=== PATIENT | female | born 1940 | race Caucasian/White ===

== ENCOUNTER 2016-12-06 09:36 | Outpatient (CLI) | payer MEDICARE, BC ==
--- NOTE | 2016-12-06 14:28 | CT ---
CT THORAX WITHOUT IV CONTRAST: Date: 12-06-16 History: Bronchiectasis. CAMILLE. Shortness of breath. Comparison: 09-22-16 FINDINGS: Again noted are numerous pulmonary nodules seen within the lung bilaterally. Largest noncalcified pu lmonary nodule in the right upper lobe measures 10 mm which is stable in size compared to the prior exam. There is an irregular nodular density at the right lung base on the prior study, previously me asuring 9 mm x 8 mm which is now smaller in size and has a more tubular configuration and appears to represent a vessel on this examination. Nevertheless, the nodular portion is much smaller. Addition al nodular densities at the right lung base are stable in size. No new pulmonary nodule or mass is i dentified. A few scattered calcified granulomata are identified with splenic and hepatic granulomata also again present. No pleural effusion is seen. Slight ground glass density at each lung base are again seen and unchan ged. Vascular calcifications are again seen in the thoracic aorta. No other interval change. IMPRESSION: 1. Previously described triangular nodular density at the right base has improved and is only repres ented by linear density on today's exam. 2. Stable scattered nodular densities within the lungs bilaterally as well as stable mild bibasilar ground glass densities. These findings are likely attributable to patient's history of CAMILLE. 3. Evidence of prior granulomatous disease. POS: [facility]
== END 2016-12-06 09:37 | disposition home or self-care (01) ==
LOC: CT 09:36
PROVIDERS: ATTEND Internal Medicine Critical Care Medicine
DX: D71 Functional disorders of polymorphonuclear neutrophils (principal); J47.9 Bronchiectasis, uncomplicated; R91.8 Other nonspecific abnormal finding of lung field
CPT/HCPCS: 71250

== ENCOUNTER 2017-01-25 08:00 | Outpatient (CLI) | payer MEDICARE, BC | END 2017-01-25 08:01 | disposition home or self-care (01) | LOC: BICMAMMO 08:00 | PROVIDERS: ATTEND Internal Medicine | DX: Z53.9 Procedure and treatment not carried out, unspecified reason (principal) ==

== ENCOUNTER 2017-02-09 08:07 | Outpatient (CLI) | payer MEDICARE, BC | END 2017-02-09 08:08 | disposition home or self-care (01) | LOC: BICMAMMO 08:07 | PROVIDERS: ATTEND Internal Medicine | DX: Z53.9 Procedure and treatment not carried out, unspecified reason (principal) ==

== ENCOUNTER 2017-03-22 14:45 | Outpatient (CLI) | payer MEDICARE, BC | END 2017-03-22 14:46 | disposition home or self-care (01) | LOC: BICMAMMO 14:45 | PROVIDERS: ATTEND Internal Medicine | DX: Z12.31 Encounter for screening mammogram for malignant neoplasm of breast (principal); Z13.820 Encounter for screening for osteoporosis; M85.852 Other specified disorders of bone density and structure, left thigh; Z80.3 Family history of malignant neoplasm of breast | CPT/HCPCS: 77063; 77067; 77080 ==

== ENCOUNTER 2017-05-25 19:18 | Emergency (ER) | payer MEDICARE, BC ==
[2017-05-25] MEDS ORDERED: Lorazepam 1 MG TAB ONE (20:03)
[2017-05-25 20:21] LABS: Anion Gap 13 mmol/L (10-20); BUN (Urea Nitrogen) 19 mg/dL (9.8-20.1); Calc. Creatinine Clearance 0 mL/min (70-130); Calcium 9.9 mg/dL (7.8-10.44); Carbon Dioxide 32 mmol/L (23-31); Chloride 99 mmol/L (98-107); Estimated GFR-MDRD 72; Glucose 121 mg/dL (83-110); Potassium 4.7 mmol/L (3.5-5.1); Sodium 139 mmol/L (136-145)
[2017-05-25 20:22] LABS: #Basophils 0.1 thou/uL (0.0-0.2); #Eosinphils 0.1 thou/uL (0.0-0.7); #Monocytes 0.4 thou/uL (0.11-0.59); #Neutrophils 3.9 thou/uL (1.40-6.50); %Basophils 1.2 % (0.0-1.0); %Lymphocytes 18.1 % (21.0-51.0); %Monocytes 7.4 % (0.0-10.0); %Neutrophils 71.4 % (42.0-75.0); Hemoglobin 13.9 g/dL (12.0-16.0); Mean Corpuscular HGB CONC 34.3 g/dL (32.0-36.0); Mean Corpuscular Hemoglobin 31.1 pg (27.0-31.0); Mean Corpuscular Volume 90.7 fl (81.0-99.0); Mean Platelet Volume 8.4 fL (7.4-10.4); Platelet Count 208 thou/uL (130-400); RBC Distribution Width 10.8 % (11.5-14.5); Red Blood Cell (RBC) Count 4.48 mill/uL (4.20-5.40); White Blood Cell (WBC) Count 5.4 thou/uL (4.8-10.8)
[2017-05-25 20:25] LABS: CKMB 1.5 ng/mL (0-6.6); Troponin I Less than 0.010 ng/mL (< 0.028)
--- NOTE | 2017-05-25 21:18 | RAD ---
CHEST PA AND LATERAL TWO VIEWS: 05/25/17 HISTORY: 76-year-old female with history of dyspnea and anxiety. COMPARISON: Heart size is normal. Calcified granuloma in the left chest. There are several circumscribed nodules in the right lung including the upper and lower lung zones which appear stable when compared to a anh or CT scan of 12/06/16. No confluent pneumonia, overt edema or pleural effusion. IMPRESSION: Stable multiple nodular densities in the right chest. Old granulomatous disease in the left chest. No evidence for pneumonia, edema, or other acute process. POS: [facility]
== END 2017-05-25 20:52 | disposition home or self-care (01) ==
LOC: SCSER 19:18
DX: F41.9 Anxiety disorder, unspecified (principal); J44.9 Chronic obstructive pulmonary disease, unspecified; Z79.899 Other long term (current) drug therapy
CPT/HCPCS: 71046; 80048; 82553; 84484; 85025; 85379; 93005; J7620

== ENCOUNTER 2018-01-17 10:10 | Outpatient (CLI) | payer MEDICARE, BC ==
--- NOTE | 2018-01-17 13:29 | RAD ---
CHEST TWO VIEWS: History: Dyspnea. Comparison: 01-24-18 FINDINGS: Similar appearance to both lung nodules right upper lobe. Small right upper lobe bronchiolectasis. Th ere is also right lower and left lower lobe pulmonary nodules. No pneumothorax. No large effusion. IMPRESSION: Similar appearance of the numerous pulmonary nodules. POS: [facility]
== END 2018-01-17 10:11 | disposition home or self-care (01) ==
LOC: RAD 10:10
PROVIDERS: ATTEND Internal Medicine Critical Care Medicine
DX: R06.00 Dyspnea, unspecified (principal); R91.8 Other nonspecific abnormal finding of lung field
CPT/HCPCS: 71046

== ENCOUNTER 2018-02-03 15:06 | Outpatient (CLI) | payer MEDICARE, BC ==
--- NOTE | 2018-02-03 17:13 | MRI ---
MRI BRAIN WITH AND WITHOUT IV CONTRAST: Date: 02/03/18 HISTORY: Disorientation, memory issues, COMPARISON: 01/22/16. FINDINGS: The focal areas of gliosis in the right posterior frontal region is stable. Changes of chronic small vessel ischemic disease in the periventricular white matter are again seen. No evidence of infarct, h emorrhage, mass, midline shift, or abnormal extra-axial fluid collections are noted. No abnormal post contrast enhancement is seen. The ventricular size is appropriate and the basilar cisterns are patent . The visualized paranasal sinuses and mastoid air cells are well aerated. IMPRESSION: Stable exam. No evidence of acute intracranial process or mass. POS: [facility]
== END 2018-02-03 15:07 | disposition home or self-care (01) ==
LOC: BICMRI 15:06
PROVIDERS: ATTEND Internal Medicine
DX: R41.0 Disorientation, unspecified (principal); A31.0 Pulmonary mycobacterial infection
CPT/HCPCS: 70553

== ENCOUNTER 2018-03-16 14:12 | Outpatient (CLI) | payer MEDICARE, BC ==
--- NOTE | 2018-03-16 14:35 | RAD ---
PA AND LATERAL CHEST: History: Cough. Comparison: 05-25-17 FINDINGS: Heart size is within normal limits. Lungs are clear of infiltrates. Nodular densities in both lung fi elds are stable. No significant bony findings. IMPRESSION: Stable pulmonary nodules. No active intrathoracic disease. POS: [facility]
== END 2018-03-16 14:13 | disposition home or self-care (01) ==
LOC: BICRAD 14:12
PROVIDERS: ATTEND Internal Medicine
DX: R05 Cough (principal); R07.81 Pleurodynia; J91.8 Pleural effusion in other conditions classified elsewhere
CPT/HCPCS: 71046

== ENCOUNTER 2018-03-30 18:28 | Emergency (ER) | payer MEDICARE, BC ==
[2018-03-30] MEDS ORDERED: Aspirin Chewable 81 MG TAB ONE (19:07)
[2018-03-30 19:14] LABS: #Basophils 0.1 thou/uL (0.0-0.2); #Eosinphils 0.1 thou/uL (0.0-0.7); #Lymphocytes 1.2 thou/uL (1.20-3.40); #Monocytes 0.5 thou/uL (0.11-0.59); #Neutrophils 3.9 thou/uL (1.40-6.50); %Basophils 0.9 % (0.0-1.0); %Eosinophils 2.2 % (0.0-10.0); %Lymphocytes 20.9 % (21.0-51.0); %Monocytes 9.4 % (0.0-10.0); %Neutrophils 66.6 % (42.0-75.0); Mean Corpuscular HGB CONC 32.9 g/dL (32.0-36.0); Mean Corpuscular Hemoglobin 30.8 pg (27.0-31.0); Mean Corpuscular Volume 93.5 fL (78.0-98.0); Mean Platelet Volume 8.4 fL (7.4-10.4); Platelet Count 247 thou/uL (130-400); RBC Distribution Width 11.2 % (11.5-14.5); Red Blood Cell (RBC) Count 4.56 mill/uL (4.20-5.40); White Blood Cell (WBC) Count 5.8 thou/uL (4.8-10.8)
[2018-03-30 19:29] LABS: ALT (SGPT) 20 U/L (8-55); AST (SGOT) 24 U/L (5-34); Albumin 4.3 g/dL (3.4-4.8); Alkaline Phosphatase 48 U/L (40-150); Anion Gap 13 mmol/L (10-20); BUN (Urea Nitrogen) 17 mg/dL (9.8-20.1); Bilirubin, Total 0.2 mg/dL (0.2-1.2); Calc. Creatinine Clearance 0 mL/min (70-130); Carbon Dioxide 33 mmol/L (23-31); Chloride 100 mmol/L (98-107); Estimated GFR-MDRD 80; Globulin 2.5 g/dL (2.4-3.5); Glucose 81 mg/dL (83-110); Lipase 29 U/L (8-78); Potassium 4.3 mmol/L (3.5-5.1); Protein, Total 6.8 g/dL (6.0-8.3); Sodium 142 mmol/L (136-145)
--- NOTE | 2018-03-30 19:36 | RAD ---
TWO VIEWS CHEST: 03/30/18 HISTORY: Cough, shortness of breath. PA and lateral views of the chest is obtained on 03/30/18. Comparison made to previous exam from 03/16/18. Two views chest demonstrate well circumscribed densiti es in the right upper lobe, right lower lobe, and left hilar regions. These are stable and unchanged since the previous exam. Mild pulmonary vascular congestion seen. Some areas of scarring seen in the right lung base. No significant interval changes noted. No evidence of pneumothorax seen. IMPRESSION: Well circumscribed nodular densities in the right lung and left hilar regions, unchanged since the pr evious exam. POS: [facility]
== END 2018-03-30 20:05 | disposition home or self-care (01) ==
LOC: SCSER 18:28
DX: R06.02 Shortness of breath (principal); J44.9 Chronic obstructive pulmonary disease, unspecified; E78.00 Pure hypercholesterolemia, unspecified; F41.9 Anxiety disorder, unspecified
CPT/HCPCS: 71046; 80053; 83690; 83880; 84484; 85025; 85379; 93005; J7620

== ENCOUNTER 2018-04-12 10:42 | Outpatient (CLI) | payer MEDICARE, BC | END 2018-04-12 10:43 | disposition home or self-care (01) | LOC: BICMAMMO 10:42 | PROVIDERS: ATTEND Internal Medicine | DX: Z12.31 Encounter for screening mammogram for malignant neoplasm of breast (principal); R92.1 Mammographic calcification found on diagnostic imaging of breast; Z80.3 Family history of malignant neoplasm of breast | CPT/HCPCS: 77063; 77067 ==

== ENCOUNTER 2018-07-10 08:30 | Outpatient (CLI) | payer MEDICARE, BC ==
[2018-07-10] MEDS ORDERED: Iopamidol 370 76% 100 ML VIAL ONE (09:00)
--- NOTE | 2018-07-10 10:01 | CT ---
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 COMPARISON: 12/06/2016. FINDINGS: Lungs remain hyperinflated. Nodular scarring at the right apex is similar in appearance to the previous study. The 1.0 cm noncalcified nodule within the central aspect of the right upper lobe is stable. Additional subcentimeter right parenchymal nodules and the nodular scarring at the ri ght lateral lung base are stable compared to 12/06/2016. Calcified granuloma the left lower lobe is stable. No new masses. No pleural fluid or pneumothorax. No mediastinal adenopathy. Minimal calcification within the arteria l structures. IMPRESSION: Right lung nodules, parenchymal scarring, and other findings are stable. No new chest abn ormalities.
== END 2018-07-10 08:31 | disposition home or self-care (01) ==
LOC: SCSCT 08:30
PROVIDERS: ATTEND Internal Medicine Infectious Disease
DX: A43.0 Pulmonary nocardiosis (principal); R91.8 Other nonspecific abnormal finding of lung field
CPT/HCPCS: 71260; 82565; Q9967

== ENCOUNTER 2019-01-04 08:19 | Outpatient (CLI) | payer MEDICARE, BC ==
--- NOTE | 2019-01-04 10:21 | RAD ---
PA AND LATERAL CHEST: Date: 01/04/19 HISTORY: Dyspnea. COMPARISON: 01/17/18. FINDINGS: Heart size within normal limits. There are atherosclerotic changes of the aorta. Nodular densities wi thin the right upper lobe appear similar to the previous exam. Also an area of slight nodularity in t he right base is stable. Lungs are mildly hyperexpanded. IMPRESSION: Stable exam. POS: [facility]
== END 2019-01-04 08:20 | disposition home or self-care (01) ==
LOC: RAD 08:19
PROVIDERS: ATTEND Internal Medicine Critical Care Medicine
DX: R06.00 Dyspnea, unspecified (principal)
CPT/HCPCS: 71046

== ENCOUNTER 2020-07-28 11:09 | Outpatient (CLI) | payer MEDICARE, BC | END 2020-07-28 11:10 | disposition home or self-care (01) | LOC: BICRAD 11:09 | PROVIDERS: ATTEND Internal Medicine Critical Care Medicine | DX: R06.00 Dyspnea, unspecified (principal); R91.8 Other nonspecific abnormal finding of lung field | CPT/HCPCS: 71046 ==

== ENCOUNTER 2020-11-03 13:37 | Outpatient (CLI) | payer MEDICARE, BC | END 2020-11-03 13:38 | disposition home or self-care (01) | LOC: BICMAMMO 13:37 | PROVIDERS: ATTEND Internal Medicine | DX: Z12.31 Encounter for screening mammogram for malignant neoplasm of breast (principal) | CPT/HCPCS: 77063; 77067 ==

== ENCOUNTER 2021-05-29 12:54 | Outpatient (CLI) | payer MEDICARE, BC | END 2021-05-29 12:55 | disposition home or self-care (01) | PROVIDERS: ATTEND Family Medicine | DX: R13.10 Dysphagia, unspecified (principal); R63.30 Feeding difficulties, unspecified | CPT/HCPCS: 74230 ==

== ENCOUNTER 2021-06-24 09:32 | Outpatient (CLI) | payer MEDICARE, BC | END 2021-06-24 09:33 | disposition home or self-care (01) | LOC: RAD 09:32 | PROVIDERS: ATTEND Internal Medicine Critical Care Medicine | DX: R06.00 Dyspnea, unspecified (principal) | CPT/HCPCS: 71046 ==

== ENCOUNTER 2021-11-04 13:50 | Outpatient (CLI) | payer MEDICARE, BC | END 2021-11-04 13:51 | disposition home or self-care (01) | LOC: BICMAMMO 13:50 | PROVIDERS: ATTEND Internal Medicine | DX: Z12.31 Encounter for screening mammogram for malignant neoplasm of breast (principal); Z91.89 Other specified personal risk factors, not elsewhere classified | CPT/HCPCS: 77063; 77067 ==

== ENCOUNTER 2022-06-08 14:49 | Outpatient (CLI) | payer MEDICARE, BC | END 2022-06-08 14:50 | disposition home or self-care (01) | LOC: RAD 14:49 | PROVIDERS: ATTEND Internal Medicine Critical Care Medicine | DX: R06.00 Dyspnea, unspecified (principal) | CPT/HCPCS: 71046 ==

== ENCOUNTER 2022-11-24 14:30 | Outpatient (CLI) | payer MEDICARE, BC | END 2022-11-24 14:31 | disposition home or self-care (01) | LOC: BICMAMMO 14:30 | PROVIDERS: ATTEND Internal Medicine | DX: Z12.31 Encounter for screening mammogram for malignant neoplasm of breast (principal); Z91.89 Other specified personal risk factors, not elsewhere classified | CPT/HCPCS: 77063; 77067 ==

== ENCOUNTER 2022-12-16 10:49 | Outpatient (CLI) | payer MEDICARE, BC | END 2022-12-16 10:50 | disposition home or self-care (01) | LOC: RAD 10:49 | PROVIDERS: ATTEND Internal Medicine Critical Care Medicine | DX: R06.00 Dyspnea, unspecified (principal) | CPT/HCPCS: 71046 ==